=== PATIENT | female | born 1990 | race Hispanic/Latino ===

== ENCOUNTER 2017-04-05 19:42 | Emergency (ER) | payer BC ==
[2017-04-05 19:52] VITALS: TEMP 97.9; O2SAT 99
[2017-04-05] MEDS ORDERED: Sodium Chloride 0.9% 1,000 ML IV SCH (20:15)
--- NOTE | 2017-04-05 20:50 | US ---
EXAM: US After First Trimester, Transabdominal CLINICAL HISTORY: 26 years old, female; Screening exam; Routine us, uterus; Additional info: TECHNIQUE: Real-time transabdominal obstetrical ultrasound of the maternal pelvis and a second or third trimester with image documentation. COMPARISON: No relevant prior studies available. FINDINGS: Fetus: Single live intrauterine gestation. Heart rate: heart rate of 149 beats per minute. Presentation: Cephalic. Placenta: Fundal placenta. No placenta previa or abruption. Amniotic fluid: MIGUELINA = 15.7 cm. Anatomy: No gross anomaly is appreciated. BIOMETRICS Gestational age by US: Estimated gestational age of 35 weeks 6 days by measurements. EFW: Estimated weight of 2793 g. BPD: 8.9 cm, correlating with 35 weeks 5 days. HC: 31.8 cm, correlating with 35 weeks 6 days. AC: 32.2 cm, correlating with 36 weeks 1 day. FL: 6.9 cm, correlating with 35 weeks 4 days. MATERNAL: Uterus: Unremarkable. No myometrial mass. Cervix: No cervical dilatation or effacement. Adnexa: Ovaries not visualized. No adnexal masses. Free fluid: No significant free fluid. IMPRESSION: 1. Single live intrauterine gestation.
--- NOTE | 2017-04-05 21:03 | ED PDOC ---
Arrival/HPI - General Chief Complaint: GI Problem Time Seen by Provider: 04/05/17 19:49 Historian: Patient - History of Present Illness Narrative History of Present Illness (Text): 04/05/17 20:02 Christa Avendaño is a 26 year old female, currently 8 months , who presents to the Emergency department complaining of nausea, vomiting, and generalized weakness today. Patient denies any fever, chills, shortness of breath, abdominal pain, diarrhea, urinary symptoms, vaginal bleeding, vaginal discharge , back pain, neck pain, headache, dizziness, or any other complaints. Time/Duration: Other (today) Symptom Onset: Gradual Symptom Course: Unchanged Activities at Onset: Light Context: Home Past Medical History - Provider Review Nursing Documentation Reviewed: Yes - Psychiatric Hx Substance Use: No Family/Social History - Physician Review Nursing Documentation Reviewed: Yes Family/Social History: Unknown Family HX Smoking Status: Former Smoker Hx Alcohol Use: No Hx Substance Use: No Allergies/Home Meds Allergies/Adverse Reactions: Allergies No Known Allergies Allergy (Verified 04/05/17 19:51) Review of Systems - Physician Review All systems were reviewed & negative as marked: Yes - Review of Systems Constitutional: Other (+generalized weakness). absent: Fevers Eyes: Normal ENT: Normal Respiratory: Normal. absent: SOB, Cough Cardiovascular: Normal. absent: Chest Pain Gastrointestinal: Nausea, Vomiting Genitourinary Female: Normal. absent: Dysuria, Frequency, Hematuria, Urine Output Changes, Vaginal Bleeding, Vaginal Discharge Musculoskeletal: Normal. absent: Back Pain, Neck Pain Skin: Normal. absent: Rash Neurological: Normal. absent: Headache, Dizziness Endocrine: Normal Hemo/Lymphatic: Normal Psychiatric: Normal Physical Exam Vital Signs Reviewed: Yes Vital Signs Temp Pulse Resp BP Pulse Ox 04/05/17 21:48 87 18 106/59 L 99 04/05/17 19:51 97.9 F 109 H 20 137/76 99 Temperature: Afebrile Blood Pressure: Normal Pulse: Regular Respiratory Rate: Normal Appearance: Positive for: Well-Appearing, Non-Toxic, Comfortable Pain Distress: None Mental Status: Positive for: Alert and Oriented X 3 - Systems Exam Head: Present: Atraumatic, Normocephalic Pupils: Present: PERRL Extroacular Muscles: Present: EOMI Conjunctiva: Present: Normal Mouth: Present: Moist Mucous Membranes Neck: Present: Normal Range of Motion Respiratory/Chest: Present: Clear to Auscultation, Good Air Exchange. No: Respiratory Distress, Accessory Muscle Use Cardiovascular: Present: Regular Rate and Rhythm, Normal S1, S2. No: Murmurs Abdomen: Present: Normal Bowel Sounds. No: Tenderness, Distention, Peritoneal Signs Back: Present: Normal Inspection Upper Extremity: Present: Normal Inspection. No: Cyanosis, Edema Lower Extremity: Present: Normal Inspection. No: Edema Neurological: Present: GCS=15, CN II-XII Intact, Speech Normal Skin: Present: Warm, Dry, Normal Color. No: Rashes Psychiatric: Present: Alert, Oriented x 3, Normal Insight, Normal Concentration Medical Decision Making ED Course and Treatment: 04/05/17 20:02 Impression: 26 year old female complaining of nausea/vomiting and generalized weakness today. Plan: -- US Age -- IV fluids -- Reassess and disposition Progress Notes: 04/05/17 20:50 Reviewed sono, US Age shows: Fetus: Single live intrauterine gestation. Heart rate: heart rate of 149 beats per minute. Presentation: Cephalic. Placenta: Fundal placenta. No placenta previa or abruption. Amniotic fluid: MIGUELINA = 15.7 cm. Anatomy: No gross anomaly is appreciated. BIOMETRICS Gestational age by US: Estimated gestational age of 35 weeks 6 days by measurements. EFW: Estimated weight of 2793 g. BPD: 8.9 cm, correlating with 35 weeks 5 days. HC: 31.8 cm, correlating with 35 weeks 6 days. AC: 32.2 cm, correlating with 36 weeks 1 day. FL: 6.9 cm, correlating with 35 weeks 4 days. MATERNAL: Uterus: Unremarkable. No myometrial mass. Cervix: No cervical dilatation or effacement. Adnexa: Ovaries not visualized. No adnexal masses. Free fluid: No significant free fluid. IMPRESSION: 1. Single live intrauterine gestation.04/05/17 21:43 04/05/17 21:48 On reevaluation the patient feels better and is in no acute distress. I have discussed the results and plan with the patient, who expresses understanding. Patient given the opportunity to ask question, all questions were answered and there is agreement with the plan to discharge the patient home. Patient is stable for discharge. Patient was instructed to follow up with physician/clinic in 1-2 days or return if symptoms persist/worsen or new concerning symptoms arise. - RAD Interpretation Radiology Orders: 04/05/17 20:02 AGE [US] Stat Director Inbound Sales: Radiologist - Medication Orders Current Medication Orders: Discontinued Medications Sodium Chloride (Sodium Chloride 0.9%) 1,000 mls @ 1,000 mls/hr IV .Q1H ANTON Stop: 04/05/17 21:14 Last Admin: 04/05/17 20:14 Dose: 1,000 mls/hr eMAR Start Stop Document 04/05/17 20:14 HI (Rec: 04/05/17 20:14 LA [id number]) Intravenous Solution Start Date 04/05/17 Start Time 20:14 - Scribe Statement The provider has reviewed the documentation as recorded by the Tip Mane Provider Scribe Attestation: All medical record entries made by the Scribe were at my direction and personally dictated by me. I have reviewed the chart and agree that the record accurately reflects my personal performance of the history, physical exam, medical decision making, and the department course for this patient. I have also personally directed, reviewed, and agree with the discharge instructions and disposition. Disposition/Present on Arrival - Present on Arrival Any Indicators Present on Arrival: No History of DVT/PE: No History of Uncontrolled Diabetes: No Urinary Catheter: No History of Decub. Ulcer: No History Surgical Site Infection Following: None - Disposition Have Diagnosis and Disposition been Completed?: Yes Diagnosis: Vomiting and diarrhea Disposition: HOME/ ROUTINE Disposition Time: 21:40 Condition: GOOD Discharge Instructions (ExitCare): Acute Nausea and Vomiting (ED) Prescriptions: Ondansetron [Zofran Odt] 8 mg PO TID PRN #10 odt PRN Reason: Nausea/Vomiting Referrals: [facility] [employer] Diego Ingram, [Primary Care Provider] - Follow up with primary Forms: [employer] (Kyrgyz)
[2017-04-05 21:48] VITALS: BP 106/59; PULSE 87; RESP 18
== END 2017-04-05 21:47 | disposition home or self-care (01) ==
LOC: ED 19:42
DX: O21.2 Late vomiting of pregnancy (principal); R19.7 Diarrhea, unspecified; Z3A.35 35 weeks gestation of pregnancy
CPT/HCPCS: 76815; 99284; J7040

== ENCOUNTER 2017-06-08 12:53 | Emergency (ER) | payer BC ==
[2017-06-08 13:18] VITALS: BMI 30.4
--- NOTE | 2017-06-08 13:44 | ED PDOC ---
Arrival/HPI - General Chief Complaint: Back Pain Time Seen by Provider: 06/08/17 13:43 Historian: Patient - History of Present Illness Narrative History of Present Illness (Text): 06/08/17 13:44 This 26 yo female who denies pmh, presents to this ED c/o left lower back pain x 1 day. Patient admits lifting her son very often. Patient noted she had a vaginal delivery x 3 weeks ago. Patient denies sob, cp, abdominal pain, urinary symptoms, vaginal discharge, heavy lifting, recent trauma, GI/ incontinence, saddle anesthesias, urinary retention, vaginal discharge, or abnormal gait. Time/Duration: Other (see hpi) Quality: Aching Context: Home Past Medical History - Provider Review Nursing Documentation Reviewed: Yes - Cardiac Hx Cardiac Disorders: No - Pulmonary Hx Respiratory Disorders: No - Neurological Hx Neurological Disorder: No - HEENT Hx HEENT Disorder: No - Renal Hx Renal Disorder: No - Endocrine/Metabolic Hx Endocrine Disorders: No - Hematological/Oncological Hx Blood Disorders: No - Integumentary Hx Dermatological Disorder: No - Musculoskeletal/Rheumatological Hx Musculoskeletal Disorders: No - Gastrointestinal Hx Gastrointestinal Disorders: No - Genitourinary/Gynecological Hx Genitourinary Disorders: No - Psychiatric Hx Psychophysiologic Disorder: No Hx Substance Use: No Family/Social History - Physician Review Nursing Documentation Reviewed: Yes Family/Social History: Other (noncontributory) Smoking Status: Former Smoker Hx Alcohol Use: No Hx Substance Use: No Allergies/Home Meds Allergies/Adverse Reactions: Allergies No Known Allergies Allergy (Verified 06/08/17 13:18) Home Medications: Home Meds Medication Instructions Recorded Confirmed Pnv No.95/Ferrous Fum/Folic AC 1 tab PO DAILY 06/08/17 06/08/17 [Prenavite] Review of Systems - Review of Systems Constitutional: Normal. absent: Fatigue, Weight Change Eyes: Normal ENT: Normal Respiratory: Normal. absent: SOB, Cough Cardiovascular: Normal. absent: Chest Pain, Palpitations Gastrointestinal: Normal. absent: Abdominal Pain, Nausea, Vomiting Genitourinary Female: Normal Musculoskeletal: Back Pain Skin: Normal Neurological: Normal. absent: Headache, Dizziness, Focal Weakness, Gait Changes , Speech Changes, Facial Droop, Disequilibrium, Seizure Endocrine: Normal Hemo/Lymphatic: Normal Psychiatric: Normal Physical Exam Vital Signs Temp Pulse Resp BP Pulse Ox 06/08/17 13:48 98.1 F 71 19 128/71 95 Temperature: Afebrile Blood Pressure: Normal Pulse: Regular Respiratory Rate: Normal Appearance: Positive for: Well-Appearing, Non-Toxic, Comfortable Pain Distress: None Mental Status: Positive for: Alert and Oriented X 3 - Systems Exam Head: Present: Atraumatic, Normocephalic Pupils: Present: PERRL Extroacular Muscles: Present: EOMI Conjunctiva: Present: Normal Mouth: Present: Moist Mucous Membranes Neck: Present: Normal Range of Motion Respiratory/Chest: Present: Clear to Auscultation, Good Air Exchange. No: Respiratory Distress, Accessory Muscle Use Cardiovascular: Present: Regular Rate and Rhythm, Normal S1, S2. No: Murmurs Abdomen: Present: Normal Bowel Sounds. No: Tenderness, Distention, Peritoneal Signs, Rebound, Guarding Back: Present: Normal Inspection, Paraspinal Tenderness (Mild left paravertebral tenderness. No vertebral point tenderness. no vertebral step off ). No: CVA Tenderness, Midline Tenderness Upper Extremity: Present: Normal Inspection, Normal ROM. No: Cyanosis, Edema Lower Extremity: Present: Normal Inspection, Normal ROM. No: Edema Neurological: Present: GCS=15, CN II-XII Intact, Speech Normal Skin: Present: Warm, Dry, Normal Color. No: Rashes Psychiatric: Present: Alert, Oriented x 3, Normal Insight, Normal Concentration Medical Decision Making ED Course and Treatment: 06/08/17 14:47 Patient understood plan to review urine cx. result in 2-3 days with her pmd. return to emergency if pain worsen. Re-evaluation Time: 14:48 Reassessment Condition: Re-examined, Improved - Lab Interpretations Lab Results: Lab Results 06/08/17 14:24: Urine Color Yellow, Urine Appearance Clear, Urine pH 5.5, Ur Specific Steele >= 1.030, Urine Protein Negative, Urine Glucose (UA) Negative, Urine Ketones Negative, Urine Blood Trace-intact H, Urine Nitrate Negative, Urine Bilirubin Negative, Urine Urobilinogen 0.2, Ur Leukocyte Esterase Trace H , Urine RBC 5 - 10, Urine WBC 2 - 5, Ur Epithelial Cells 4 - 5, Urine Bacteria Mod I have reviewed the lab results: Yes Interpretation: Abnormal lab values - Medication Orders Current Medication Orders: Discontinued Medications Cephalexin Monohydrate (Keflex) 500 mg PO STAT STA PRN Reason: Protocol Stop: 06/08/17 14:43 Naproxen (Anaprox) 275 mg PO STAT STA Stop: 06/08/17 14:10 Last Admin: 06/08/17 14:26 Dose: 275 mg MAR Pain Assessment Document 06/08/17 14:26 [email or web address] (Rec: 06/08/17 14:26 [email or web address] [id number]) Pain Reassessment Is this a pain reassessment? No Sleep Is patient sleeping during reassessment? No Presence of Pain Presence of Pain Yes Pain Scale Used Pain Scale Used Numeric Location Upper or Lower Lower Pain Location Body Site Back Description Description Constant Intensity of Pain at present 6 Pain Behavior Facial Grimacing Aggravating Factors Changing Position Alleviating Factors/Management Position Change Techniques Alleviating Factors Medication Disposition/Present on Arrival - Present on Arrival Any Indicators Present on Arrival: No History of DVT/PE: No History of Uncontrolled Diabetes: No Urinary Catheter: No History of Decub. Ulcer: No History Surgical Site Infection Following: None - Disposition Have Diagnosis and Disposition been Completed?: Yes Diagnosis: Back pain Disposition: HOME/ ROUTINE Disposition Time: 14:48 Patient Plan: Discharge Patient Problems: Current Active Problems Problem Status Onset Back pain Acute Condition: GOOD Discharge Instructions (ExitCare): Back Pain (ED) Additional Instructions: call private doctor for follow up visit. drink enough fluids. rest and avoid lifting heavy object. return to emergency if symptoms worsen. Prescriptions: Cephalexin [cephalexin] 500 mg PO BID #10 cap Naproxen [Anaprox] 275 mg PO BID #10 tab Referrals: PCP,NO [Primary Care Provider] - Follow up with primary [facility] [Outside] - Follow up with primary [facility] [Outside] - Follow up with primary Forms: [employer] (Syriac)
[2017-06-08 13:49] VITALS: TEMP 98.1
[2017-06-08] MEDS ORDERED: Naproxen 275 mg Tab PO STA (14:09)
[2017-06-08 14:34] LABS: PH,URINE 5.5 (4.7-8.0); URINE BILIRUBIN NEGATIVE (NEGATIVE); URINE BLOOD TRACE-INTACT (NEGATIVE); URINE GLUCOSE (UA) NEGATIVE (NEGATIVE); URINE LEUKOCYTE ESTERASE TRACE Leu/uL (NEGATIVE); URINE NITRATE NEGATIVE (NEGATIVE); URINE PROTEIN NEGATIVE mg/dL (<30 mg/dL); URINE UROBILINOGEN 0.2 E.U./dL (<1 E.U./dL)
[2017-06-08 14:35] LABS: URINE APPEARANCE CLEAR (CLEAR); URINE COLOR YELLOW (YELLOW)
[2017-06-08 14:40] LABS: URINE BACTERIA MOD (NEG)
[2017-06-08 14:59] VITALS: PULSE 88; RESP 18; O2SAT 99
[2017-06-08 15:00] VITALS: BP 130/88
== END 2017-06-08 15:08 | disposition home or self-care (01) ==
LOC: ED 12:53
DX: M54.9 Dorsalgia, unspecified (principal); Z98.890 Other specified postprocedural states

== ENCOUNTER 2018-01-23 16:21 | Emergency (ER) | payer BC ==
[2018-01-23 16:53] VITALS: BMI 28.8
[2018-01-23] MEDS ORDERED: Morphine 4 mg/ml ISec IVP STA (17:05)
--- NOTE | 2018-01-23 17:10 | ED PDOC ---
Arrival/HPI - General Historian: Patient - History of Present Illness Time/Duration: Prior to Arrival Symptom Onset: Sudden Symptom Course: Intermittent Quality: Stabbing Severity Level: Moderate - General Chief Complaint: Chest Pain Time Seen by Provider: 01/23/18 16:47 - History of Present Illness Narrative History of Present Illness (Text): 01/23/18 17:06 27 year old female, with no significant past medical history, presents to the ED with new onset epigastric pain that started 20 minutes prior to arrival. Patient states she was at home when sharp, epigastric pain started which radiated to the right shoulder and chest. Currently pain is 8/10 but can increase to 10/10. She did not take anything for the pain. This is the first time she has experienced this type of pain. Denies left sided arm or jaw pain, diaphoresis, or palpitations. Patient states associated dizziness with symptom onset but denies nausea, vomiting, syncope, fever, chills, shortness of breath, headache, diarrhea, gait abnormalities, or urinary symptoms. Of note, patient recently had an on Monday with no complications. No PMD (Ilana,Joss) Past Medical History - Provider Review Nursing Documentation Reviewed: Yes - Cardiac Hx Cardiac Disorders: No - Pulmonary Hx Respiratory Disorders: No - Neurological Hx Neurological Disorder: No - HEENT Hx HEENT Disorder: No - Renal Hx Renal Disorder: No - Endocrine/Metabolic Hx Endocrine Disorders: No - Hematological/Oncological Hx Blood Disorders: No - Integumentary Hx Dermatological Disorder: No - Musculoskeletal/Rheumatological Hx Musculoskeletal Disorders: No - Gastrointestinal Hx Gastrointestinal Disorders: No - Genitourinary/Gynecological Hx Genitourinary Disorders: No - Psychiatric Hx Psychophysiologic Disorder: No Hx Substance Use: No Family/Social History - Physician Review Nursing Documentation Reviewed: Yes Family/Social History: No Known Family HX Smoking Status: Former Smoker Hx Alcohol Use: No Hx Substance Use: No Allergies/Home Meds Allergies/Adverse Reactions: Allergies No Known Allergies Allergy (Verified 06/08/17 13:18) Home Medications: Home Meds Medication Instructions Recorded Confirmed Pnv No.95/Ferrous Fum/Folic AC 1 tab PO DAILY 06/08/17 06/08/17 [Prenavite] Review of Systems - Physician Review All systems were reviewed & negative as marked: Yes - Review of Systems Constitutional: absent: Fevers Eyes: absent: Vision Changes ENT: absent: Hearing Changes Respiratory: absent: SOB, Cough Cardiovascular: absent: Chest Pain, Palpitations Gastrointestinal: Abdominal Pain. absent: Diarrhea, Nausea, Vomiting Genitourinary Female: absent: Dysuria, Hematuria Musculoskeletal: absent: Back Pain, Neck Pain Skin: absent: Rash, Skin Lesions Neurological: absent: Headache, Dizziness Endocrine: absent: Diaphoresis Physical Exam Vital Signs Reviewed: Yes Temperature: Afebrile Blood Pressure: Normal Pulse: Regular Respiratory Rate: Normal Appearance: Positive for: Well-Appearing, Uncomfortable Pain Distress: Moderate Mental Status: Positive for: Alert and Oriented X 3 - Systems Exam Head: Present: Atraumatic, Normocephalic Pupils: Present: PERRL Extroacular Muscles: Present: EOMI Mouth: Present: Moist Mucous Membranes Respiratory/Chest: Present: Clear to Auscultation, Good Air Exchange. No: Respiratory Distress, Accessory Muscle Use Cardiovascular: Present: Regular Rate and Rhythm, Normal S1, S2. No: Murmurs Abdomen: Present: Other (No chiang's sign, soft abdomen ). No: Tenderness, Distention, Peritoneal Signs, Rebound, Guarding Upper Extremity: Present: Normal Inspection, NORMAL PULSES Lower Extremity: Present: Normal Inspection, NORMAL PULSES Psychiatric: Present: Alert, Oriented x 3, Normal Insight, Normal Concentration Medical Decision Making ED Course and Treatment: Patient Seen With Resident: In agreement with resident note. Patient was seen and evaluated with resident, came up with plan and treatment together. (Power Medeiros) 01/23/18 17:12 27F, no significant PMH, presents to ED with new onset sharp epigastric pain radiating to right shoulder and chest 20 minutes prior to arrival. CBC CMP Lipase Abd US Morphine 4mg EKG - sinus kanika, 54bpm 01/23/18 18:33 Date of service: 01/23/2018 HISTORY: pain, ?gallstones COMPARISON: None available. TECHNIQUE: Sonographic evaluation of the right upper quadrant of the abdomen. FINDINGS: LIVER: Measures 15.8 cm in length. Echogenic liver may be seen in setting of hepatic parenchymal disease or fatty infiltration. No focal hepatic mass identified. Main portal vein appears patent with normal directional flow. No intrahepatic bile duct dilatation. GALLBLADDER: Gallstones. No gallbladder wall thickening or pericholecystic edema. Negative sonographic Chiang's sign as assessed by the it infrastructure engineer. COMMON BILE DUCT: Measures 4-5 mm. PANCREAS: Not well-visualized. RIGHT KIDNEY: Measures 11.4 x 4.5 x 5.7 cm. No obstructing calculus or hydronephrosis identified. AORTA: Limited visualization appears grossly unremarkable. IVC: Limited visualization appears grossly unremarkable. OTHER FINDINGS: None . IMPRESSION: Echogenic liver may be seen in setting of hepatic parenchymal disease or fatty infiltration. Cholelithiasis. CMP shows elevated liver enzymes. Tbili was normal suggesting no involvement of the biliary tree. Patient has been afebrile with no leukocytosis. Discussed with anesthesia resident Dr. Levi regarding patient's elevated liver enzymes in setting of gallstones and fatty liver. Because patient has been afebrile with no leukocytosis and no suggested biliary tree involvement, patient can be safely discharged and follow up outpatient with Dr. Mccollum. Recommended a soft, bland diet and advance as tolerated. NSAIDs such as ibuprofen, or Tylenol for pain. Patient is to follow up with Dr. Mccollum within 1 week. If symptoms worsen, including but not limited to, fevers or increasing abdominal pain, patient should return to the emergency room. Patient verbalized understanding and agreement of the treatment plan. Case reviewed and discussed with attending provider. (Joss Wayne) - Lab Interpretations Lab Results: 01/23/18 17:06 01/23/18 17:06 Lab Results 01/23/18 17:06: WBC 7.9, RBC 4.67, Hgb 13.2, Hct 39.4, MCV 84.4, MCH 28.3, MCHC 33.5, RDW 13.2, Plt Count 254, MPV 9.5, Gran % 56.1, Lymph % (Auto) 34.8, [place] % (Auto) 5.5, Eos % (Auto) 3.3, Baso % (Auto) 0.3, Gran # 4.46, Lymph # (Auto) 2.8, [place] # (Auto) 0.4, Eos # (Auto) 0.3, Baso # (Auto) 0.02 01/23/18 17:06: Sodium 141, Potassium 4.3, Chloride 104, Carbon Dioxide 25, Anion Gap 16, BUN 12, Creatinine 0.5 L, Est GFR ( Amer) > 60, Est GFR ( Non-Af Amer) > 60, Random Glucose 106, Calcium 9.3, Total Bilirubin 0.5, AST 161 H, ALT 248 H, Alkaline Phosphatase 88, Total Protein 7.4, Albumin 4.3, Globulin 3.1, Albumin/Globulin Ratio 1.4, Lipase 110 - RAD Interpretation Radiology Orders: 01/23/18 16:48 GALLBLADDER & PANCREAS [US] Stat - Medication Orders Current Medication Orders: Discontinued Medications Morphine Sulfate (Morphine) 4 mg IVP STAT STA Stop: 01/23/18 17:06 Disposition/Present on Arrival - Present on Arrival Any Indicators Present on Arrival: No History of DVT/PE: No History of Uncontrolled Diabetes: No Urinary Catheter: No History Surgical Site Infection Following: None - Disposition Have Diagnosis and Disposition been Completed?: Yes Disposition Time: 18:41 Patient Plan: Discharge - Disposition Diagnosis: Cholelithiasis, Fatty liver Disposition: HOME/ ROUTINE Condition: GOOD Discharge Instructions (ExitCare): Gallstones (DC), Nonalcoholic Fatty Liver Disease (DC) Additional Instructions: Patient is to follow up with Dr. Mccollum within 1 week regarding surgical evaluation. NSAIDs such as ibuprofen, or Tylenol for pain. If symptoms worsen, including but not limited to, fevers or increasing abdominal pain, patient should return to the emergency room. Prescriptions: Ibuprofen [Motrin] 600 mg PO PRN PRN #7 tab PRN Reason: Pain, Moderate (4-7) Sennosides/Docusate Sodium [Stool Soft-Stimulant Lax Tab] 1 each PO PRN PRN 7 Days #7 tablet PRN Reason: Constipation Referrals: Mulugeta Mccollum MD [Staff Provider] - Follow up with primary Forms: [employer] (Serbian)
[2018-01-23 17:22] LABS: BASO # 0.02 K/mm3 (0.0-2.0); BASO % 0.3 % (0.0-3.0); EOS # 0.3 (0.0-0.7); EOS % 3.3 % (1.5-5.0); GRAN # 4.46 (1.4-6.5); GRAN % 56.1 % (50.0-68.0); HEMOGLOBIN 13.2 g/dL (12.0-16.0); LYMPH # 2.8 (1.2-3.4); LYMPH % 34.8 % (22.0-35.0); MEAN CELL VOLUME 84.4 fl (80.0-105.0); MEAN CORPUSCULAR HEMOGLOBIN 28.3 pg (25.0-35.0); MEAN CORPUSCULAR HGB CONC 33.5 g/dl (31.0-37.0); MEAN PLATELET VOLUME 9.5 fl (7.0-11.0); MONO # 0.4 (0.1-0.6); MONO % 5.5 % (1.0-6.0); RBC 4.67 10^6/uL (3.5-6.1); RED CELL DISTRIBUTION WIDTH 13.2 % (11.5-14.5); WHITE BLOOD COUNT 7.9 10^3/ul (4.5-11.0)
[2018-01-23 17:34] LABS: ALB/GLOB RATIO 1.4 (1.1-1.8); ALBUMIN 4.3 g/dL (3.0-4.8); ALT/SGPT 248 U/L (7-56); AST/SGOT 161 U/L (14-36); BLOOD UREA NITROGEN 12 mg/dL (7-21); CALCIUM 9.3 mg/dL (8.4-10.5); GFR NON-AFRICAN AMERICAN > 60; LIPASE 110 U/L (23-300)
--- NOTE | 2018-01-23 18:12 | US ---
Date of service: 01/23/2018 HISTORY: pain, ?gallstones COMPARISON: None available. TECHNIQUE: Sonographic evaluation of the right upper quadrant of the abdomen. FINDINGS: LIVER: Measures 15.8 cm in length. Echogenic liver may be seen in setting of hepatic parenchymal disease or fatty infiltration. No focal hepatic mass identified. Main portal vein appears patent with normal directional flow. No intrahepatic bile duct dilatation. GALLBLADDER: Gallstones. No gallbladder wall thickening or pericholecystic edema. Negative sonographic Chiang's sign as assessed by the full stack java developer. COMMON BILE DUCT: Measures 4-5 mm. PANCREAS: Not well-visualized. RIGHT KIDNEY: Measures 11.4 x 4.5 x 5.7 cm. No obstructing calculus or hydronephrosis identified. AORTA: Limited visualization appears grossly unremarkable. IVC: Limited visualization appears grossly unremarkable. OTHER FINDINGS: None . IMPRESSION: Echogenic liver may be seen in setting of hepatic parenchymal disease or fatty infiltration. Cholelithiasis.
[2018-01-23 18:49] VITALS: BP 129/80
[2018-01-23 19:15] VITALS: PULSE 77; RESP 19; TEMP 99.7; O2SAT 97
--- NOTE | 2018-01-23 20:24 | CARD ---
APPROVED REPORT Date of service: 01/23/2018 EKG Measurement Heart [id number] <Conclusion> Sinus bradycardia with sinus arrhythmia Otherwise normal ECG
== END 2018-01-23 19:14 | disposition home or self-care (01) ==
LOC: ED 16:21
DX: K80.20 Calculus of gallbladder without cholecystitis without obstruction (principal); K76.0 Fatty (change of) liver, not elsewhere classified; Z87.891 Personal history of nicotine dependence